=== PATIENT | female | born 1965 | race Caucasian/White ===

== ENCOUNTER → 2016-09-07 | Outpatient (CLI) | payer OTHER ==
[~2016-09-07] MED LIST: ASPI81TA21 PO; CALCTAB5 PO; CHOL100027 PO; LORA-741 PO; MULTTAB58 PO; OMEG10007 PO; PRLSR20 PO; SENNTAB23 PO; TYLOTC500 PO; ZNTT/150 PO
[2016-09-07 13:12] LABS: BLOOD UREA NITROGEN 18 mg/dl (7-18); BUN/CREATININE RATIO 17.9 (10-20); CALCIUM 9.4 mg/dl (8.5-10.1); CARBON DIOXIDE 26 mmol/L (21-32); CHLORIDE 107 mmol/L (98-107); CHOLESTEROL 238 mg/dl (0-200); GLUCOSE 86 mg/dl (70-99); POTASSIUM 4.5 mmol/L (3.5-5.1); SODIUM 142 mmol/L (136-145); TRIGLYCERIDES 80 mg/dl (0-150); VERY LOW DENSITY LIPOPROT CALC 16 mg/dl
[2016-09-07 13:15] LABS: CHOLESTEROL/HDL RATIO 3.8; HDL CHOLESTEROL 63 mg/dl; LDL CHOLESTEROL CALCULATED 159 mg/dl
== END | disposition home or self-care (01) ==
LOC: C.LABPVFM 08:50
PROVIDERS: ATTEND Nurse Practitioner
DX: Z51.81 Encounter for therapeutic drug level monitoring (principal); Z79.899 Other long term (current) drug therapy; Z13.220 Encounter for screening for lipoid disorders

== ENCOUNTER → 2017-07-31 | Outpatient (CLI) | payer OTHER ==
--- NOTE | 2017-08-01 12:57 | MAMMOGRAPHY REPORT ---
BILATERAL DIGITAL SCREENING MAMMOGRAM TOMOSYNTHESIS WITH CAD: 07/31/2017 CLINICAL HISTORY: Routine screening. Patient has no complaints. TECHNIQUE: Breast tomosynthesis in addition to standard 2D mammography was performed. Current study was also evaluated with a Computer Aided Detection (CAD) system. COMPARISON: Comparison is made to exams dated: 05/24/2016 mammogram, 01/13/2015 mammogram, 05/07/2013 m ammogram, 01/02/2012 mammogram, 01/02/2012 ultrasound, and 12/26/2011 mammogram - [facility]. BREAST COMPOSITION: There are scattered areas of fibroglandular density in both breasts. FINDINGS: No suspicious masses, calcifications, or areas of architectural distortion are noted in ei ther breast. There has been no significant interval change compared to prior exams. IMPRESSION: ACR BI-RADS CATEGORY 1: NEGATIVE There is no mammographic evidence of malignancy. A 1 year screening mammogram is recommended. The pa tient will receive written notification of the results. Approximately 10% of breast cancers are not detected with mammography. A negative mammographic report should not delay biopsy if a clinically suggestive mass is present. Susan Rosales M.D. /:07/31/2017 15:16:00 Research Physiologist: Sonia PETERR, M, [facility] letter sent: Normal 1/2 BI-RADS Code: ACR BI-RADS Category 1: Negative
== END | disposition home or self-care (01) ==
LOC: C.MAMM 14:00
PROVIDERS: ATTEND Nurse Practitioner
DX: Z12.31 Encounter for screening mammogram for malignant neoplasm of breast (principal)

== ENCOUNTER → 2017-08-09 | Outpatient (CLI) | payer OTHER ==
[2017-08-09 13:20] LABS: BLOOD UREA NITROGEN 16 mg/dl (7-18); CARBON DIOXIDE 28 mmol/L (21-32); CHLORIDE 106 mmol/L (98-107); CHOLESTEROL 206 mg/dl (0-200); CREATININE 0.92 mg/dl (0.60-1.20); GLUCOSE 89 mg/dl (70-99); POTASSIUM 4.3 mmol/L (3.5-5.1); SODIUM 138 mmol/L (136-145); TRIGLYCERIDES 76 mg/dl (0-150); VERY LOW DENSITY LIPOPROT CALC 15 mg/dl
[2017-08-09 13:24] LABS: CHOLESTEROL/HDL RATIO 3.4; HDL CHOLESTEROL 61 mg/dl; LDL CHOLESTEROL CALCULATED 130 mg/dl
== END | disposition home or self-care (01) ==
LOC: C.LABPVFM 08:29
PROVIDERS: ATTEND Nurse Practitioner
DX: E78.00 Pure hypercholesterolemia, unspecified (principal); Z79.899 Other long term (current) drug therapy

== ENCOUNTER → 2017-08-25 | Outpatient (CLI) | payer OTHER ==
[2017-08-25 18:41] LABS: LIPASE 215 U/L (73-393)
== END | disposition home or self-care (01) ==
LOC: C.LABPVFM 16:07
PROVIDERS: ATTEND Nurse Practitioner
DX: Z11.59 Encounter for screening for other viral diseases (principal); R10.32 Left lower quadrant pain; K21.9 Gastro-esophageal reflux disease without esophagitis

== ENCOUNTER → 2017-09-02 | Outpatient (CLI) | payer OTHER ==
--- NOTE | 2017-09-02 13:04 | DIAGNOSTIC IMAGING REPORT ---
ABDOMEN COMPLETE (US) CLINICAL HISTORY: R10.32 Abdominal pain, K21.9 GERD COMPARISON STUDY: No previous studies for comparison. FINDINGS: No focal hepatic masses are visualized. There are a few echogenic foci within the right lobe, possibly representing calcifications. The gallbladder contains calculi and sludge. The gallbladder wall is the upper limits of normal thickness measuring 3 mm. There is a negative sonographic Buckner sign. The visualized portions the pancreas were unremarkable in appearance. There is no ductal dilatation. The common bile duct measured 4 mm. No splenic masses are visualized. The right kidney measured 10.1 cm in length. The left kidney measures 12.1 cm in length. A 7 mm mid pole right renal calculus and 4 mm lower pole right renal calculus are suspected. There is no evidence of abdominal aortic dilatation. No abnormality IVC were visualized The bladder was decompressed the time scanning. Within the left upper quadrant, in the area of clinical symptomatology, there is a 35 x 18 x 19 mm hypoechoic/cystic focus. Is unclear whether this represents a true lesion, or a bowel loop. If symptoms persist, a CT scan would be recommended in follow-up IMPRESSION: 1. Cholelithiasis. No evidence of ductal dilatation 2. Suspected right-sided nephrolithiasis 3. Within the left upper quadrant in the area of clinical symptomatology there is a 35 x 18 x 19 mm hypoechoic/cystic focus. It is unclear whether this represents a true lesion or bowel loop. If symptoms persist, a CT scan with oral and intravenous contrast would be recommended in follow-up Electronically signed by: Benji Atkinson M.D. 09/02/2017 1:03 PM Dictated Date/Time: 09/02/2017 12:58 PM
== END | disposition home or self-care (01) ==
LOC: C.ULTR 10:43
PROVIDERS: ATTEND Nurse Practitioner
DX: R10.32 Left lower quadrant pain (principal); K21.9 Gastro-esophageal reflux disease without esophagitis; K80.20 Calculus of gallbladder without cholecystitis without obstruction; R93.5 Abnormal findings on diagnostic imaging of other abdominal regions, including retroperitoneum

== ENCOUNTER → 2017-09-05 | Outpatient (CLI) | payer OTHER ==
[~2017-09-05] MED LIST changes: +OPTIRAY 320 IV PRN
--- NOTE | 2017-09-05 12:25 | DIAGNOSTIC IMAGING REPORT ---
ABD/PELVIS IV AND ORAL CONT CT DOSE: 941.80 mGycm HISTORY: Pain. Nausea. R93.8 Abnormal [id number] Abdominal pain, LUQ (left upper TECHNIQUE: Multiaxial CT images of the abdomen and pelvis were performed following the use of intravenous and oral contrast. A dose lowering technique was utilized adhering to the principles of ALARA. COMPARISON STUDY: Ultrasound 09/02/2017 FINDINGS: Lung bases are clear. Liver spleen and pancreas are unremarkable. Minimal hyperplastic change left adrenal gland. Kidneys enhance uniformly. There is a 6 mm nonobstructing calcification interpolar region right kidney. This is associated with a cortical scar of the right kidney. Evaluation specifically a left upper quadrant shows no evidence for abnormal mass or collection. The ultrasound finding presumably relates to bowel. Bowel pattern overall is nonobstructive. There is moderate increase in fecal load within the rectosigmoid. There is no evidence for diverticulitis or obstructive change. Bladder is midline. There are no contained bladder calcifications. Inguinal regions are unremarkable. IMPRESSION: 1. 6 mm nonobstructing calcification right kidney. 2. Focal cortical scarring right kidney mid aspect considered a chronic finding. 3. Nonobstructive bowel pattern. 4. Several faint gallstones. 5. Ultrasound findings of the left upper quadrant presumably relates to bowel content or bowel fluid is of no significance. 6. Increased fecal load within the rectosigmoid although there is no evidence for fecal stasis. The above report was generated using voice recognition software. It may contain grammatical, syntax or spelling errors. Electronically signed by: Negrito Taylor M.D. 09/05/2017 12:24 PM Dictated Date/Time: 09/05/2017 12:19 PM
== END | disposition home or self-care (01) ==
LOC: C.CTS 11:35
PROVIDERS: ATTEND Nurse Practitioner
DX: R10.12 Left upper quadrant pain (principal); R93.8 Abnormal findings on diagnostic imaging of other specified body structures; K80.20 Calculus of gallbladder without cholecystitis without obstruction

== ENCOUNTER → 2017-09-22 | Day surgery (SDC) | payer OTHER ==
[2017-09-16 14:12] VITALS: Ht 168.9 cm; Wt 95.5 kg
[~2017-09-22] VITALS: Ht 168.9 cm; Wt 95.5 kg
[~2017-09-22] MED LIST changes: +CALC600T9 PO; -CALCTAB5 PO; +LIDOCAINE HCL 2% 2 ML VIAL (20MG/ML) ONE; +NAPR-1168 PO; -OPTIRAY 320 IV PRN; +PANT1TAB3 PO; -PRLSR20 PO; +PROPOFOL IV EMULSION 10 MG/ML 20 ML VIAL IV ONE; +SODIUM CHLORIDE 0.9% 500ML 500 ML IV ONE
--- NOTE | 2017-09-22 12:26 | Endo History and Physical ---
History & Physical Date of Service: Sep 22, 2017. Chief Complaint: GERD w/o Esophagitis, Hiatal Hernia Referring Physician: Mary Gray History of Present Illness 51 yo CF who presents for EGD secondary to GERD. Past Surgical History Hx Cardiac Surgery: No Hx Internal Defibrillator: No Hx Pacemaker: No Hx Abdominal Surgery: Yes (PARTIAL HYSTER, TUBAL LIGATION) Hx of Implantable Prosthesis: No Hx Post-Op Nausea and Vomiting: No Hx Cancer Surgery: No Hx Thoracic Surgery: No Hx Orthopedic: No Hx Urinary Tract Surgery: No Family History None Social History Smoking Status: Former Smoker Hx Substance Use: No Hx Alcohol Use: Yes (OCCASIONAL) Allergies Coded Allergies: Sulfamethoxazole w/Trimethoprim (Verified Allergy, Mild, HIVES, 09/22/17) Current Medications Reported Home Medications Medications Dose Route/Sig Max Daily Dose Days Date Category Calcium + D (Calcium Carbonate-Vitamin D) 1 Tab Tab 1 Tab PO DAILY 09/16/17 Reported Naprosyn Ds (Naproxen) 550 Mg Tab 550 Mg PO QAM 09/16/17 Reported Protonix (Pantoprazole) 40 Mg Tab 40 Mg PO QAM 09/16/17 Reported Tylenol (Acetaminophen) 500 Mg Tab 1,000-2,000 Mg PO DAILY PRN 03/27/15 Reported Zantac (Ranitidine HCl) 150 Mg Tab 150 Mg PO BID 03/27/15 Reported Multivitamin (Multiple Vitamin) 1 Tab Tab 1 Tab PO DAILY 08/26/12 Reported [place]-3 (Fish Oil) 1 Ea Cap 1 Cap PO DAILY 08/26/12 Reported Vitamin D 1000 Unit (Cholecalciferol) 1,000 Unit Cap 1,000 Inter.unit PO DAILY 08/26/12 Reported Stool Softener (Sennosides-Docusate Sodium) 1 Tab Tab 1 Tablet PO DAILY 08/26/12 Reported Ecotrin Or Generic (Aspirin) 81 Mg Tab 81 Mg PO DAILY 08/26/12 Reported Ativan (Lorazepam) 0.5 Mg Tab 0.5 Mg PO TID PRN 08/26/12 Reported Vital Signs Weight (Kilograms): 95.45 Height (Feet): 5 Height (Inches): 6.5 Date Time Temp Pulse Resp B/P (MAP) Pulse Ox O2 Delivery O2 Flow Rate FiO2 09/22/17 11:22 36.7 77 16 108/75 (86) 96 Room Air Physical Exam General Appearance: WD/WN, no apparent distress Respiratory/Chest: Auscultation: breath sounds normal Cardiovascular: Heart Auscultation: RRR Abdomen: Bowel Sounds: normal Inspection & Palpation: soft, non-distended, no tenderness, guarding & rebound Assessment and Plan Assessment: 51 yo CF who presents for EGD secondary to GERD. Plan: Proceed with EGD.
--- NOTE | 2017-09-22 12:46 | GI REPORT ---
Procedure Date: 09/22/2017 11:49 AM Procedure: Upper GI endoscopy Indications: Esophageal reflux Medicines: Monitored Anesthesia Care Complications: No immediate complications. Estimated Blood Loss: Estimated blood loss: none. Procedure: Pre-Anesthesia Assessment: - Prior to the procedure, a History and Physical was performed, and patient medications and allergies were reviewed. The patient's tolerance of previous anesthesia was also reviewed. The risks and benefits of the procedure and the sedation options and risks were discussed with the patient. All questions were answered, and informed consent was obtained. Prior Anticoagulants: The patient has taken aspirin, last dose was 2 days prior to procedure. ASA Grade Assessment: II - A patient with mild systemic disease. After reviewing the risks and benefits, the patient was deemed in satisfactory condition to undergo the procedure. After obtaining informed consent, the endoscope was passed under direct vision. Throughout the procedure, the patient's blood pressure, pulse, and oxygen saturations were monitored continuously. The scope was introduced through the mouth, and advanced to the second part of duodenum. The upper GI endoscopy was accomplished without difficulty. The patient tolerated the procedure well. Findings: A moderate Schatzki ring (acquired) was found at the gastroesophageal junction. The dilation site was examined and showed moderate improvement in luminal narrowing. A small hiatal hernia was present. The examined duodenum was normal. Impression: - Moderate Schatzki ring. - Small hiatal hernia. - Normal examined duodenum. - No specimens collected. Recommendation: - Resume previous diet. - Continue present medications. - Repeat upper endoscopy PRN for retreatment. - Return to primary care physician as previously scheduled. Haile Ponce, DO 09/22/2017 12:45:33 PM This report has been signed electronically. Note Initiated On: 09/22/2017 11:49 AM I attest to the content of the Intraoperative Record and orders documented therein, exceptions below
--- NOTE | 2017-09-22 12:47 | Discharge Instructions ---
Endoscopy Patient Instructions Date / Procedure(s) Performed Sep 22, 2017. EGD Allergy Information Coded Allergies: Sulfamethoxazole w/Trimethoprim (Verified Allergy, Mild, HIVES, 09/22/17) Discharge Date / Findings Sep 22, 2017. Schatzki's ring s/p dilation Hiatal hernia Medication Instructions Stopped Medication(s): 81mg Aspirin taken on 09/21/17 OK to resume all medications today as prescribed Reported Home Medications Medications Dose Route/Sig Max Daily Dose Days Date Category Calcium + D (Calcium Carbonate-Vitamin D) 1 Tab Tab 1 Tab PO DAILY 09/16/17 Reported Naprosyn Ds (Naproxen) 550 Mg Tab 550 Mg PO QAM 09/16/17 Reported Protonix (Pantoprazole) 40 Mg Tab 40 Mg PO QAM 09/16/17 Reported Tylenol (Acetaminophen) 500 Mg Tab 1,000-2,000 Mg PO DAILY PRN 03/27/15 Reported Zantac (Ranitidine HCl) 150 Mg Tab 150 Mg PO BID 03/27/15 Reported Multivitamin (Multiple Vitamin) 1 Tab Tab 1 Tab PO DAILY 08/26/12 Reported [place]-3 (Fish Oil) 1 Ea Cap 1 Cap PO DAILY 08/26/12 Reported Vitamin D 1000 Unit (Cholecalciferol) 1,000 Unit Cap 1,000 Inter.unit PO DAILY 08/26/12 Reported Stool Softener (Sennosides-Docusate Sodium) 1 Tab Tab 1 Tablet PO DAILY 08/26/12 Reported Ecotrin Or Generic (Aspirin) 81 Mg Tab 81 Mg PO DAILY 08/26/12 Reported Ativan (Lorazepam) 0.5 Mg Tab 0.5 Mg PO TID PRN 08/26/12 Reported Provider Instructions Activity Restrictions - No exercising or heavy lifting for 24 hours. - Do not drink alcohol the day of the procedure. - Do not drive a car or operate machinery until the day after the procedure. - Do not make any important decisions or sign important papers in 24 hours after the procedure. Following Day: - Return to full activity which may include returning to work/school. Diet Start your diet with liquids and light foods (jello, soup, juice, toast). Then eat your usual diet if not nauseated. Treatment For Common After Affects For mild abdominal pain, bloating, or excessive gas: - Rest - Eat lightly - Lie on right side Follow-Up Information Follow-up with Mary Gray as scheduled Anesthesia Information What You Should Know You have had a procedure that required some medicine to reduce anxiety and discomfort. This treatment is called moderate sedation. After receiving the treatment, you may be sleepy, but you will be able to breathe on your own. The effects of the treatment may last for several hours. Follow these instructions along with Activity/Diet recommendations noted above: * Do NOT do anything where dizziness or clumsiness would be dangerous. * Rest quietly at home today, then you can be up and about tomorrow. * Have a responsible person stay with you the rest of today. * You may have had an I.V. today. If so, you may take the dressing off later today. Recommendations Call your doctor if: * Trouble breathing * Continuous vomiting for more than 24 hours * Temperature above 101 degrees * Severe abdominal pain or bloating * Pain not relieved by pain medicine ordered * There is increased drainage or redness from any incision * A large amount of rectal bleeding greater than 2-3 tablespoons. (If you had a polyp/s removed or have hemorrhoids, a small amount of blood - from the rectum is to be expected.) * You have any unanswered questions or concerns. IN THE EVENT OF A SERIOUS EMERGENCY, GO TO THE NEAREST EMERGENCY ROOM Your discharge instructions were prepared by provider Haile Ponce. Patient Instructions Signature Page Sowmya Gonzalez Patient (or Guardian) Signature/Date: I have read and understand the instructions given to me by my caregivers. Caregiver/RN/Doctor Signature/Date: The above-named patient and/or guardian has received patient instructions on this date. + Original Patient Signature Page (only) stays with chart. Please make copy for patient.
[2017-09-22 13:15] VITALS: BP 115/79; PULSE 68; O2SAT 100
--- NOTE | 2017-09-22 13:30 | Anesthesiology Progress Note ---
Anesthesia Post Op Note Date & Time Sep 22, 2017 at 13:30 Vital Signs Pain Intensity: 0 Vital Signs Past 12 Hours Date Time Temp Pulse Resp B/P (MAP) Pulse Ox O2 Delivery O2 Flow Rate FiO2 09/22/17 13:15 68 20 115/79 (91) 100 Room Air 09/22/17 13:00 66 18 118/77 (91) 100 Room Air 09/22/17 12:45 92 16 127/92 (104) 97 Room Air 09/22/17 11:22 36.7 77 16 108/75 (86) 96 Room Air Notes Mental Status: alert / awake / arousable, participated in evaluation Pt Amnestic to Procedure: Yes Nausea / Vomiting: adequately controlled Pain: adequately controlled Airway Patency, RR, SpO2: stable & adequate BP & HR: stable & adequate Hydration State: stable & adequate Anesthetic Complications: no major complications apparent
== END | disposition home or self-care (01) ==
LOC: C.GI 10:57
PROVIDERS: ATTEND Internal Medicine
DX: K21.9 Gastro-esophageal reflux disease without esophagitis (principal); K22.2 Esophageal obstruction; K44.9 Diaphragmatic hernia without obstruction or gangrene; Z90.711 Acquired absence of uterus with remaining cervical stump; Z98.51 Tubal ligation status; Z87.891 Personal history of nicotine dependence; Z79.82 Long term (current) use of aspirin; Z79.899 Other long term (current) drug therapy; E66.9 Obesity, unspecified; Z68.33 Body mass index [BMI] 33.0-33.9, adult; Z88.1 Allergy status to other antibiotic agents; Z88.2 Allergy status to sulfonamides